=== PATIENT | male | born 1960 | race Caucasian/White ===

== ENCOUNTER 2019-02-03 07:45 | Day surgery (SDC) | payer MEDICARE, MEDICAID ==
[2019-02-03] VITALS (8 sets, daily range): BP systolic 77–159; BP diastolic 47–103
[~2019-02-03] VITALS: Ht 188 cm; Wt 103.7 kg
[2019-02-03] MEDS ORDERED: fentaNYL/PF 50MCG/1 ML 2ML syringe IV PRN (08:25)
[2019-02-03] MEDS ORDERED: normal saline 1000ml 1,000 ML IV PRN (08:25)
[2019-02-03] MEDS ORDERED: LIDOcaine 1%/PF 5ML 10 MG/ML VIAL SQ ONE (08:25)
[2019-02-03] MEDS ORDERED: midazolam 2 mg/2 ml injection IV PRN (08:25)
[2019-02-03] MEDS ORDERED: CLON0.5T23 PO (08:43)
[2019-02-03] MEDS ORDERED: FERR325T28 PO (08:43)
[2019-02-03] MEDS ORDERED: ISOS30TA6 PO (08:43)
[2019-02-03] MEDS ORDERED: GLIP10TA11 PO (08:43)
[2019-02-03] MEDS ORDERED: BUME1TAB8 PO (08:43)
[2019-02-03] MEDS ORDERED: CHOL100046 PO (08:43)
[2019-02-03] MEDS ORDERED: ATOR10TA87 PO (08:43)
[2019-02-03 09:05] LABS: BASOPHILS # (AUTO) 0.1 X10'3 (0-0.2); BASOPHILS % (AUTO) 0.8 % (0-1); EOSINOPHILS # (AUTO) 0.1 X10'3 (0-0.9); EOSINOPHILS % (AUTO) 2.4 % (0-6); HEMATOCRIT 32.7 % (42.0-52.0); HEMOGLOBIN 11.4 g/dl (14.0-17.9); LYMPHOCYTES # (AUTO) 1.3 X10'3 (1.1-4.8); LYMPHOCYTES % (AUTO) 21.9 % (21-51); MEAN CORPUSCULAR HEMOGLOBIN 35.8 PG (27.0-31.0); MEAN CORPUSCULAR HGB CONC 34.8 g/dL (33.0-36.5); MEAN CORPUSCULAR VOLUME 102.7 FL (78-98); MEAN PLATELET VOLUME 8.2 FL (7.4-10.4); MONOCYTES # (AUTO) 0.5 X10'3 (0-0.9); MONOCYTES % (AUTO) 7.6 % (2-12); NEUTROPHILS # (AUTO) 4.1 X10'3 (1.8-7.7); NEUTROPHILS % (AUTO) 67.3 % (42-75); PLATELET COUNT 168 X10'3 (140-440); RED BLOOD COUNT 3.18 X10'6 (4.70-6.10); RED CELL DISTRIBUTION WIDTH 15.9 % (11.5-14.5); WHITE BLOOD COUNT 6.1 X10'3 (4.5-11.0)
[2019-02-03] MEDS ORDERED: tPA-cathflo 2 MG/2 ml IV flush IVF ONE (09:05)
[2019-02-03] MEDS ORDERED: heparin 1,000 UNITS/NS 500ml 500 ML ONE (09:08)
[2019-02-03] MEDS ORDERED: iohexol 300mg/ml 100ml inj. ONE (09:08)
[2019-02-03] MEDS ORDERED: LIDOcaine 1%/PF 5ML 10 MG/ML VIAL ONE ×2 (09:08→10:12)
[2019-02-03 09:12] LABS: PARTIAL THROMBOPLASTIN TIME 29 SECONDS (22-32)
[2019-02-03] MEDS ORDERED: fentaNYL/PF 50MCG/1 ML 2ML syringe ONE ×2 (09:15→10:04)
[2019-02-03] MEDS ORDERED: tPA-cathflo 2 MG/2 ml IV flush ONE (09:15)
[2019-02-03] MEDS ORDERED: diphenhydrAMINE 50 mg/ml inj ONE (09:15)
[2019-02-03] MEDS ORDERED: midazolam 2 mg/2 ml injection ONE (09:40)
[2019-02-03] MEDS ORDERED: heparin 1,000unit/ml 10ml vial 10 ML ONE (10:02)
[2019-02-03 10:04] LABS: ALBUMIN 3.4 G/DL (3.4-5.0); ANION GAP 12 (8-16); BLOOD UREA NITROGEN 53 MG/DL (7-18); BUN/CREATININE RATIO 8.8 (5.4-32.0); CALCIUM 9.2 MG/DL (8.5-10.1); CHLORIDE 105 MMOL/L (99-107); GLUCOSE 173 MG/DL (70-104); POTASSIUM 4.4 MMOL/L (3.5-5.1); SODIUM 141 MMOL/L (135-145); TOTAL CARBON DIOXIDE 24.1 MMOL/L (24-32); eGFR 10 ML/MIN
[2019-02-03] MEDS ORDERED: heparin 1,000 units/ml 10ml inj ICATH ONE (10:15)
--- NOTE | 2019-02-03 11:12 | NUR ---
Pt left arm started to bleed from procedure/fistula site. pressure applied and held for 10min. New dressing applied by Alan Garcia from [facility]. Will continue to monitor. VS charted. Pt denies pain. Pt denies numbness or tingling in left hand and arm.
--- NOTE | 2019-02-03 11:25 | NUR ---
Pt left arm procedure/fistula site started bleeding, pressure applied and held for 15min. Radha Phillips, attended from [facility]. Leeanneg applied, CD&I. Pt sitting up in bed. VS charted. Pt denies pain. Will continue to monitor.
--- NOTE | 2019-02-03 12:20 | NUR ---
Awoke pt who was sleeping comfortably in bed. Pt denies pain. Site on left are is not bleeding, drsg is CD&I. vs charted. pt denies pain. pt reports he is comfortable with discharging at this time. His ride needs advance notice. Will continue to monitor until their arrival.
--- NOTE | 2019-02-03 12:46 | NUR ---
Pt left arm started to bleed. pressure held for 5min. Dressing in place with small amount of drainage. Will reassess in 20 min. Pt vs charted. pt A/O, denies pain.
--- NOTE | 2019-02-03 12:46 | NUR ---
paged Dr. Hu, awaiting call back.
--- NOTE | 2019-02-03 13:05 | NUR ---
Pressure held on left arm due to drainage. 15 min of pressure and then pressure drsg in place. Pt vs stable as charted. will continue to monitor.
== END 2019-02-03 14:20 | disposition home or self-care (01) ==
LOC: SSTAY O 07:45
PROVIDERS: ATTEND Radiology Vascular & Interventional Radiology
DX: T82.868A Thrombosis due to vascular prosthetic devices, implants and grafts, initial encounter (principal); I10 Essential (primary) hypertension; E78.00 Pure hypercholesterolemia, unspecified; E11.9 Type 2 diabetes mellitus without complications; Z89.421 Acquired absence of other right toe(s); Z79.01 Long term (current) use of anticoagulants; Z88.1 Allergy status to other antibiotic agents; Z88.8 Allergy status to other drugs, medicaments and biological substances; Z79.899 Other long term (current) drug therapy; Z79.84 Long term (current) use of oral hypoglycemic drugs; Y83.8 Other surgical procedures as the cause of abnormal reaction of the patient, or of later complication, without mention of misadventure at the time of the procedure; Y92.89 Other specified places as the place of occurrence of the external cause
CPT/HCPCS: 36415; 36558; 36904; 76937; 77001; 80048; 85025; 85610; 85730; 99152; 99153; C1725; C1750; C1769; C1894; J1200; J1644; J2250; J2997; J3010; J7030; Q9967; 36901; A9270

== ENCOUNTER 2020-01-27 08:38 | Day surgery (SDC) | payer MEDICARE, MEDICAID ==
[~2020-01-27] VITALS: Ht 188 cm; Wt 103.7 kg
[~2020-01-27 08:38] MED LIST: ALTEPLASE IV ONE; ANGIO IV ONE; ATOR10TA87 PO; BUME1TAB8 PO; CHOL100046 PO; FERR325T28 PO; GLIP10TA11 PO; ISOS30TA6 PO; METO50TA17 PO; NORMAL SALINE IV ONE; clonazepam PO; tPA-cathflo 2mg/2ml IV flush 2 MG in normal saline 100ml IV soln 100 ML IVF ONE
[2020-01-27] MEDS ORDERED: CLON-527 PO (10:22)
[2020-01-27] MEDS ORDERED: SEVE800T7 PO (10:22)
[2020-01-27] MEDS ORDERED: BUME2TAB7 PO (10:22)
[2020-01-27] MEDS ORDERED: CLON-369 PO (10:22)
[2020-01-27] MEDS ORDERED: METO-384 PO (10:22)
[2020-01-27] MEDS ORDERED: ISOS60TA4 PO (10:22)
[2020-01-27] MEDS ORDERED: ATOR40TA PO (10:22)
[2020-01-27] MEDS ORDERED: OMEP40CA13 PO (10:23)
[2020-01-27] MEDS ORDERED: FOLI1TAB34 PO (10:24)
[2020-01-27 10:26] VITALS: BP 117/69
[2020-01-27] MEDS ORDERED: heparin 1,000unit/ml 10ml vial 10 ML ONE (12:09)
[2020-01-27 12:41] VITALS: BP 145/74
== END 2020-01-27 13:00 | disposition home or self-care (01) ==
LOC: SSTAY O 08:38
PROVIDERS: ATTEND Radiology Vascular & Interventional Radiology
DX: T82.858A Stenosis of other vascular prosthetic devices, implants and grafts, initial encounter (principal); E78.00 Pure hypercholesterolemia, unspecified; E11.22 Type 2 diabetes mellitus with diabetic chronic kidney disease; I12.9 Hypertensive chronic kidney disease with stage 1 through stage 4 chronic kidney disease, or unspecified chronic kidney disease; N18.9 Chronic kidney disease, unspecified; Z98.890 Other specified postprocedural states; Z87.891 Personal history of nicotine dependence; Z88.1 Allergy status to other antibiotic agents; Z79.84 Long term (current) use of oral hypoglycemic drugs; Z79.899 Other long term (current) drug therapy; Z89.421 Acquired absence of other right toe(s); Y83.2 Surgical operation with anastomosis, bypass or graft as the cause of abnormal reaction of the patient, or of later complication, without mention of misadventure at the time of the procedure; Y92.89 Other specified places as the place of occurrence of the external cause
CPT/HCPCS: 36593; 71045; J1644; J2997

== ENCOUNTER 2020-02-02 06:18 | Day surgery (SDC) | payer MEDICARE, MEDICAID ==
[~2020-02-02] VITALS: Ht 193 cm; Wt 108.5 kg
[~2020-02-02 06:18] MED LIST changes: -ALTEPLASE IV ONE; -ANGIO IV ONE; -ATOR10TA87 PO; +ATOR40TA PO; -BUME1TAB8 PO; +BUME2TAB7 PO; -CHOL100046 PO; +CLON-369 PO; +CLON-527 PO; -FERR325T28 PO; +FOLI1TAB34 PO; -ISOS30TA6 PO; +ISOS60TA4 PO; +METO-384 PO; -NORMAL SALINE IV ONE; +OMEP40CA13 PO; +SEVE800T7 PO; -clonazepam PO; -tPA-cathflo 2mg/2ml IV flush 2 MG in normal saline 100ml IV soln 100 ML IVF ONE
[2020-02-02 06:38] VITALS: BP 139/73
[2020-02-02] MEDS ORDERED: ceFAZolin/D5W- 1GM premix 50 ML IV ONE (06:45)
[2020-02-02] MEDS ORDERED: normal saline 1000ml 1,000 ML IV PRN (06:45)
[2020-02-02 07:46] LABS: BASOPHILS % (AUTO) 0.5 % (0-1); EOSINOPHILS # (AUTO) 0.2 X10'3 (0-0.9); EOSINOPHILS % (AUTO) 3.5 % (0-6); HEMATOCRIT 27.4 % (42.0-52.0); HEMOGLOBIN 9.6 g/dl (14.0-17.9); LYMPHOCYTES # (AUTO) 1.2 X10'3 (1.1-4.8); LYMPHOCYTES % (AUTO) 21.3 % (21-51); MEAN CORPUSCULAR HEMOGLOBIN 37.3 PG (27.0-31.0); MEAN CORPUSCULAR HGB CONC 34.8 g/dL (33.0-36.5); MEAN CORPUSCULAR VOLUME 107.1 FL (78-98); MEAN PLATELET VOLUME 8.2 FL (7.4-10.4); MONOCYTES # (AUTO) 0.5 X10'3 (0-0.9); MONOCYTES % (AUTO) 8.8 % (2-12); NEUTROPHILS # (AUTO) 3.7 X10'3 (1.8-7.7); NEUTROPHILS % (AUTO) 65.9 % (42-75); PLATELET COUNT 161 X10'3 (140-440); RED BLOOD COUNT 2.56 X10'6 (4.70-6.10); RED CELL DISTRIBUTION WIDTH 13.7 % (11.5-14.5); WHITE BLOOD COUNT 5.5 X10'3 (4.5-11.0)
[2020-02-02 07:57] LABS: ANION GAP 9 (8-16); BLOOD UREA NITROGEN 50 MG/DL (7-18); BUN/CREATININE RATIO 6.7 (5.4-32.0); CALCIUM 8.4 MG/DL (8.5-10.1); CHLORIDE 108 MMOL/L (99-107); GLUCOSE 184 MG/DL (70-104); POTASSIUM 4.6 MMOL/L (3.5-5.1); SODIUM 142 MMOL/L (135-145); TOTAL CARBON DIOXIDE 24.8 MMOL/L (24-32); eGFR 7 ML/MIN
[2020-02-02] MEDS ORDERED: LIDOcaine 1%/PF 5ML 10 MG/ML VIAL ONE (08:45)
[2020-02-02] MEDS ORDERED: fentaNYL/PF 50MCG/1 ML 2ML syringe ONE ×2 (08:46→09:24)
[2020-02-02] MEDS ORDERED: midazolam 2 mg/2 ml injection ONE ×2 (08:46→09:24)
[2020-02-02] MEDS ORDERED: iohexol 300mg/ml 100ml inj. ONE (08:46)
[2020-02-02] MEDS ORDERED: heparin 1,000 UNITS/NS 500ml 500 ML ONE (08:47)
[2020-02-02] MEDS ORDERED: tPA-cathflo 2 MG/2 ml IV flush ONE (09:27)
[2020-02-02 10:39] VITALS: BP 149/65
[2020-02-02 10:45] VITALS: BP 152/97
[2020-02-02 11:00] VITALS: BP 167/86
[2020-02-02 11:15] VITALS: BP 150/79
[2020-02-02 11:30] VITALS: BP 145/64
== END 2020-02-02 11:45 | disposition home or self-care (01) ==
LOC: SSTAY O 06:18
PROVIDERS: ATTEND Radiology Diagnostic Radiology
DX: T82.868A Thrombosis due to vascular prosthetic devices, implants and grafts, initial encounter (principal); E11.22 Type 2 diabetes mellitus with diabetic chronic kidney disease; I12.9 Hypertensive chronic kidney disease with stage 1 through stage 4 chronic kidney disease, or unspecified chronic kidney disease; N18.9 Chronic kidney disease, unspecified; Z79.84 Long term (current) use of oral hypoglycemic drugs; Z79.899 Other long term (current) drug therapy; Z20.828 Contact with and (suspected) exposure to other viral communicable diseases; Y83.8 Other surgical procedures as the cause of abnormal reaction of the patient, or of later complication, without mention of misadventure at the time of the procedure; Y92.89 Other specified places as the place of occurrence of the external cause
CPT/HCPCS: 36415; 36905; 76937; 80048; 85025; 99152; 99153; C1725; C1769; C1894; J1644; J2250; J2997; J3010; Q9967

== ENCOUNTER 2020-02-22 21:15 | Emergency (ER) | payer MEDICARE, MEDICAID ==
[~2020-02-22] VITALS: Ht 188 cm; Wt 102.0 kg
[~2020-02-22 21:15] MED LIST changes: -METO50TA17 PO
[2020-02-22 22:04] LABS: BASOPHILS # (AUTO) 0.1 X10'3 (0-0.2); BASOPHILS % (AUTO) 0.6 % (0-1); EOSINOPHILS # (AUTO) 0.3 X10'3 (0-0.9); EOSINOPHILS % (AUTO) 3.1 % (0-6); HEMATOCRIT 35.4 % (42.0-52.0); HEMOGLOBIN 12.2 g/dl (14.0-17.9); LYMPHOCYTES # (AUTO) 1.6 X10'3 (1.1-4.8); LYMPHOCYTES % (AUTO) 17.1 % (21-51); MEAN CORPUSCULAR HGB CONC 34.5 g/dL (33.0-36.5); MEAN CORPUSCULAR VOLUME 107.2 FL (78-98); MEAN PLATELET VOLUME 7.9 FL (7.4-10.4); MONOCYTES # (AUTO) 0.7 X10'3 (0-0.9); MONOCYTES % (AUTO) 7.2 % (2-12); NEUTROPHILS # (AUTO) 6.7 X10'3 (1.8-7.7); PLATELET COUNT 218 X10'3 (140-440); RED BLOOD COUNT 3.31 X10'6 (4.70-6.10); RED CELL DISTRIBUTION WIDTH 14.9 % (11.5-14.5); WHITE BLOOD COUNT 9.2 X10'3 (4.5-11.0)
[2020-02-22 22:15] LABS: ALANINE AMINOTRANSFERASE 33 U/L (12-78); ALBUMIN 3.7 G/DL (3.4-5.0); ALBUMIN/GLOBULIN RATIO 0.9 (1.1-1.5); ALKALINE PHOSPHATASE 100 IU/L (46-116); ANION GAP 8 (8-16); ASPARTATE AMINO TRANSFERASE 17 U/L (10-37); BILIRUBIN,TOTAL 0.7 MG/DL (0.1-1.0); BLOOD UREA NITROGEN 22 MG/DL (7-18); BUN/CREATININE RATIO 4.9 (5.4-32.0); CALCIUM 9.2 MG/DL (8.5-10.1); CHLORIDE 100 MMOL/L (99-107); CREATININE 4.46 MG/DL (0.60-1.10); GLUCOSE 117 MG/DL (70-104); POTASSIUM 4.1 MMOL/L (3.5-5.1); SODIUM 141 MMOL/L (135-145); TOTAL CARBON DIOXIDE 33.3 MMOL/L (24-32); TOTAL PROTEIN 7.7 G/DL (6.4-8.2); eGFR 14 ML/MIN
[2020-02-22] MEDS ORDERED: ondansetron/PF 4mg/2ml inj IV ONE (22:25)
[2020-02-22] MEDS ORDERED: ONDA4TAB12 PO (22:26)
[2020-02-22 22:52] VITALS: BP 124/64
== END 2020-02-22 23:23 | disposition home or self-care (01) ==
LOC: ER 21:15
DX: I12.9 Hypertensive chronic kidney disease with stage 1 through stage 4 chronic kidney disease, or unspecified chronic kidney disease (principal); E11.22 Type 2 diabetes mellitus with diabetic chronic kidney disease; N18.9 Chronic kidney disease, unspecified; R07.9 Chest pain, unspecified; R11.0 Nausea; R61 Generalized hyperhidrosis; R53.1 Weakness; Z79.899 Other long term (current) drug therapy
CPT/HCPCS: 36415; 71045; 80053; 83880; 84484; 85025; 93005; 96374; 99285; J2405

== ENCOUNTER 2020-05-16 16:34 | Emergency (ER) | payer MEDICARE, MEDICAID ==
[~2020-05-16] VITALS: Ht 188 cm; Wt 113.3 kg
[~2020-05-16 16:34] MED LIST changes: -ISOS60TA4 PO; +ISOS60TA71 PO; +ONDA4TAB12 PO
[2020-05-16] MEDS ORDERED: piperacillin/tazo 3.375gm/50ml 50 ML IV ONE (16:50)
[2020-05-16] MEDS ORDERED: vancomycin/NS 1 GM ADD-VANTAGE 250 ML IV ONE (16:50)
[2020-05-16 17:32] LABS: BASOPHILS % (AUTO) 0.5 % (0-1); EOSINOPHILS # (AUTO) 0.1 X10'3 (0-0.9); EOSINOPHILS % (AUTO) 1.1 % (0-6); HEMATOCRIT 32.2 % (42.0-52.0); LYMPHOCYTES # (AUTO) 1.7 X10'3 (1.1-4.8); LYMPHOCYTES % (AUTO) 20.7 % (21-51); MEAN CORPUSCULAR HEMOGLOBIN 35.8 PG (27.0-31.0); MEAN CORPUSCULAR HGB CONC 34.2 g/dL (33.0-36.5); MEAN CORPUSCULAR VOLUME 104.7 FL (78-98); MEAN PLATELET VOLUME 7.8 FL (7.4-10.4); MONOCYTES # (AUTO) 0.5 X10'3 (0-0.9); MONOCYTES % (AUTO) 6.5 % (2-12); NEUTROPHILS # (AUTO) 5.9 X10'3 (1.8-7.7); NEUTROPHILS % (AUTO) 71.2 % (42-75); PLATELET COUNT 236 X10'3 (140-440); RED BLOOD COUNT 3.08 X10'6 (4.70-6.10); WHITE BLOOD COUNT 8.2 X10'3 (4.5-11.0)
[2020-05-16 17:48] LABS: ALANINE AMINOTRANSFERASE 18 U/L (12-78); ALBUMIN 3.2 G/DL (3.4-5.0); ALBUMIN/GLOBULIN RATIO 0.7 (1.1-1.5); ALKALINE PHOSPHATASE 81 IU/L (46-116); ANION GAP 10 (8-16); ASPARTATE AMINO TRANSFERASE 16 U/L (10-37); BILIRUBIN,TOTAL 0.4 MG/DL (0.1-1.0); BLOOD UREA NITROGEN 32 MG/DL (7-18); BUN/CREATININE RATIO 6.9 (5.4-32.0); CALCIUM 9.4 MG/DL (8.5-10.1); CHLORIDE 98 MMOL/L (99-107); CREATININE 4.67 MG/DL (0.60-1.10); GLUCOSE 137 MG/DL (70-104); POTASSIUM 4.1 MMOL/L (3.5-5.1); SODIUM 139 MMOL/L (135-145); TOTAL PROTEIN 7.9 G/DL (6.4-8.2); eGFR 13 ML/MIN
[2020-05-16] MEDS ORDERED: LEVO250T58 PO (18:59)
[2020-05-16] MEDS ORDERED: DOXY100C76 PO (19:00)
--- NOTE | 2020-05-16 20:09 | NUR ---
BGL was assessed to be 79. Pt stated that he has not eaten until breakfast at 1045 am. Pt is requesting something to eat. Addendum: 05/16/20 at 2013 by JOSE RAFAEL Pt was given sandwich, cheese, and apple juice.
[2020-05-16 21:54] VITALS: BP 134/64
--- NOTE | 2020-05-16 22:01 | NUR ---
Pt able to independently dress self and is awaiting taxi with a eta in 30 mins. Pt currently resting in bed awaiting transport.
== END 2020-05-16 23:11 | disposition home or self-care (01) ==
LOC: ER 16:35
DX: S91.104A Unspecified open wound of right lesser toe(s) without damage to nail, initial encounter (principal); M86.9 Osteomyelitis, unspecified; N18.6 End stage renal disease; E11.22 Type 2 diabetes mellitus with diabetic chronic kidney disease; I12.0 Hypertensive chronic kidney disease with stage 5 chronic kidney disease or end stage renal disease; Z99.2 Dependence on renal dialysis; Z79.2 Long term (current) use of antibiotics; Z79.899 Other long term (current) drug therapy; X58.XXXA Exposure to other specified factors, initial encounter; Y93.89 Activity, other specified; Y92.89 Other specified places as the place of occurrence of the external cause; Y99.8 Other external cause status
CPT/HCPCS: 36415; 73630; 80053; 82948; 83605; 84145; 85025; 87040; 93926; 96365; 96366; 96367; 99285; J2543; J3370

== ENCOUNTER 2021-03-01 17:34 | Emergency (ER) | payer MEDICARE, MEDICAID ==
[~2021-03-01] VITALS: Ht 188 cm; Wt 121.0 kg
[~2021-03-01 17:34] MED LIST changes: -OMEP40CA13 PO; +OMEP40CA21 PO
[2021-03-01] MEDS ORDERED: ondansetron 4mg rapidly disintigrating tab PO ONE (18:15)
--- NOTE | 2021-03-01 18:34 | NUR ---
ASSUMED CARE OF PT. PT IN CT
--- NOTE | 2021-03-01 19:00 | NUR ---
PT HAS NO COMPLAINTS AFTER MEDICATION.
[2021-03-01 19:16] LABS: BASOPHILS # (AUTO) 0.1 X10'3 (0-0.2); BASOPHILS % (AUTO) 0.6 % (0-1); EOSINOPHILS # (AUTO) 0.1 X10'3 (0-0.9); EOSINOPHILS % (AUTO) 0.8 % (0-6); HEMATOCRIT 39.7 % (42.0-52.0); HEMOGLOBIN 13.6 g/dl (14.0-17.9); LYMPHOCYTES # (AUTO) 0.5 X10'3 (1.1-4.8); LYMPHOCYTES % (AUTO) 4.9 % (21-51); MEAN CORPUSCULAR HEMOGLOBIN 35.5 PG (27.0-31.0); MEAN CORPUSCULAR HGB CONC 34.3 g/dL (33.0-36.5); MEAN CORPUSCULAR VOLUME 103.4 FL (78-98); MEAN PLATELET VOLUME 8.1 FL (7.4-10.4); MONOCYTES # (AUTO) 0.6 X10'3 (0-0.9); NEUTROPHILS # (AUTO) 9.9 X10'3 (1.8-7.7); NEUTROPHILS % (AUTO) 88.7 % (42-75); PLATELET COUNT 190 X10'3 (140-440); RED BLOOD COUNT 3.84 X10'6 (4.70-6.10); RED CELL DISTRIBUTION WIDTH 14.1 % (11.5-14.5); WHITE BLOOD COUNT 11.1 X10'3 (4.5-11.0)
[2021-03-01 19:30] LABS: ALANINE AMINOTRANSFERASE 31 U/L (12-78); ALBUMIN 3.5 G/DL (3.4-5.0); ALBUMIN/GLOBULIN RATIO 0.9 (1.1-1.5); ALKALINE PHOSPHATASE 82 IU/L (46-116); ANION GAP 12 (8-16); ASPARTATE AMINO TRANSFERASE 18 U/L (10-37); BILIRUBIN,TOTAL 0.4 MG/DL (0.1-1.0); BLOOD UREA NITROGEN 24 MG/DL (7-18); BUN/CREATININE RATIO 6.1 (5.4-32.0); CALCIUM 8.8 MG/DL (8.5-10.1); CHLORIDE 101 MMOL/L (99-107); CREATININE 3.96 MG/DL (0.60-1.10); GLUCOSE 253 MG/DL (70-104); LIPASE 235 U/L (73-393); POTASSIUM 4.3 MMOL/L (3.5-5.1); SODIUM 139 MMOL/L (135-145); TOTAL CARBON DIOXIDE 26.5 MMOL/L (24-32); TOTAL PROTEIN 7.5 G/DL (6.4-8.2); eGFR 16 ML/MIN
[2021-03-01 19:54] LABS: PLATELET ESTIMATE NORMAL; TOTAL CELLS COUNTED 100
[2021-03-01 19:55] LABS: ELLIPTOCYTES FEW; LARGE PLATELETS FEW; POIKILOCYTOSIS FEW; TEAR DROP CELLS FEW
[2021-03-01 20:26] VITALS: BP 123/73
== END 2021-03-01 20:27 | disposition home or self-care (01) ==
LOC: ER 17:35
DX: R19.7 Diarrhea, unspecified (principal); R10.31 Right lower quadrant pain; R10.32 Left lower quadrant pain; R11.10 Vomiting, unspecified; I12.0 Hypertensive chronic kidney disease with stage 5 chronic kidney disease or end stage renal disease; E11.22 Type 2 diabetes mellitus with diabetic chronic kidney disease; N18.6 End stage renal disease; F12.90 Cannabis use, unspecified, uncomplicated; Z99.2 Dependence on renal dialysis; Z60.2 Problems related to living alone; Z88.1 Allergy status to other antibiotic agents; Z88.8 Allergy status to other drugs, medicaments and biological substances; Z79.899 Other long term (current) drug therapy
CPT/HCPCS: 36415; 74176; 80053; 83690; 85007; 85025; 99284

== ENCOUNTER 2021-03-03 08:09 | Emergency (ER) | payer MEDICARE, MEDICAID ==
[~2021-03-03] VITALS: Ht 188 cm; Wt 113.6 kg
[2021-03-03 08:41] VITALS: BP 137/58
[2021-03-03 09:45] LABS: BASOPHILS % (AUTO) 0.4 % (0-1); EOSINOPHILS # (AUTO) 0.1 X10'3 (0-0.9); EOSINOPHILS % (AUTO) 1.4 % (0-6); HEMATOCRIT 37.6 % (42.0-52.0); HEMOGLOBIN 12.8 g/dl (14.0-17.9); LYMPHOCYTES # (AUTO) 1.5 X10'3 (1.1-4.8); LYMPHOCYTES % (AUTO) 19.6 % (21-51); MEAN CORPUSCULAR HEMOGLOBIN 35.5 PG (27.0-31.0); MEAN CORPUSCULAR HGB CONC 34.1 g/dL (33.0-36.5); MEAN CORPUSCULAR VOLUME 104.1 FL (78-98); MEAN PLATELET VOLUME 8.3 FL (7.4-10.4); MONOCYTES # (AUTO) 0.6 X10'3 (0-0.9); NEUTROPHILS # (AUTO) 5.3 X10'3 (1.8-7.7); NEUTROPHILS % (AUTO) 70.6 % (42-75); PLATELET COUNT 187 X10'3 (140-440); RED BLOOD COUNT 3.61 X10'6 (4.70-6.10); RED CELL DISTRIBUTION WIDTH 14.2 % (11.5-14.5); WHITE BLOOD COUNT 7.5 X10'3 (4.5-11.0)
[2021-03-03 09:57] LABS: PARTIAL THROMBOPLASTIN TIME 26 SECONDS (22-32)
[2021-03-03 10:02] LABS: ALANINE AMINOTRANSFERASE 26 U/L (12-78); ALBUMIN 3.5 G/DL (3.4-5.0); ALBUMIN/GLOBULIN RATIO 0.9 (1.1-1.5); ALKALINE PHOSPHATASE 76 IU/L (46-116); ANION GAP 14 (8-16); ASPARTATE AMINO TRANSFERASE 12 U/L (10-37); BILIRUBIN,TOTAL 0.4 MG/DL (0.1-1.0); BLOOD UREA NITROGEN 57 MG/DL (7-18); BUN/CREATININE RATIO 8.2 (5.4-32.0); CALCIUM 8.9 MG/DL (8.5-10.1); CHLORIDE 98 MMOL/L (99-107); CREATININE 6.99 MG/DL (0.60-1.10); GLUCOSE 315 MG/DL (70-104); POTASSIUM 5.3 MMOL/L (3.5-5.1); SODIUM 137 MMOL/L (135-145); TOTAL CARBON DIOXIDE 25.1 MMOL/L (24-32); TOTAL PROTEIN 7.4 G/DL (6.4-8.2); eGFR 8 ML/MIN
== END 2021-03-03 13:41 | disposition home or self-care (01) ==
LOC: ER 08:10
DX: T82.590A Other mechanical complication of surgically created arteriovenous fistula, initial encounter (principal); E87.5 Hyperkalemia; I10 Essential (primary) hypertension; E11.9 Type 2 diabetes mellitus without complications; F12.90 Cannabis use, unspecified, uncomplicated; Z60.2 Problems related to living alone; Z88.1 Allergy status to other antibiotic agents; Z88.8 Allergy status to other drugs, medicaments and biological substances; Z79.899 Other long term (current) drug therapy; X58.XXXA Exposure to other specified factors, initial encounter; Y93.89 Activity, other specified; Y92.89 Other specified places as the place of occurrence of the external cause; Y99.8 Other external cause status
CPT/HCPCS: 36415; 80053; 85025; 85610; 85730; 99283

== ENCOUNTER 2021-03-07 06:21 | Day surgery (SDC) | payer MEDICARE, MEDICAID ==
[2021-03-07] VITALS (7 sets, daily range): BP systolic 115–168; BP diastolic 63–76
[2021-03-07] MEDS ORDERED: AMLO5TAB PO (07:14)
[2021-03-07] MEDS ORDERED: [UNRECOGNIZED DRUG - OTHER] PO (07:14)
[2021-03-07] MEDS ORDERED: CALC668T PO (07:14)
[2021-03-07] MEDS ORDERED: ASPI-1265 PO (07:14)
[2021-03-07] MEDS ORDERED: LACT10SO3 PO (07:14)
[2021-03-07] MEDS ORDERED: tPA-cathflo 2 MG/2 ml IV flush ONE ×2 (08:05→12:17)
[2021-03-07 09:04] LABS: ALBUMIN 3.6 G/DL (3.4-5.0); ANION GAP 15 (8-16); BLOOD UREA NITROGEN 78 MG/DL (7-18); BUN/CREATININE RATIO 7.7 (5.4-32.0); CALCIUM 9.1 MG/DL (8.5-10.1); CHLORIDE 102 MMOL/L (99-107); CREATININE 10.15 MG/DL (0.60-1.10); GLUCOSE 188 MG/DL (70-104); SODIUM 139 MMOL/L (135-145); TOTAL CARBON DIOXIDE 21.9 MMOL/L (24-32); eGFR 5 ML/MIN
[2021-03-07 09:06] LABS: POTASSIUM 6.1 MMOL/L (3.5-5.1)
[2021-03-07] MEDS ORDERED: fentaNYL/PF 50MCG/1 ML 2ML syringe ONE ×2 (11:33→12:41)
[2021-03-07] MEDS ORDERED: heparin 1,000 UNITS/NS 500ml 500 ML ONE (11:33)
[2021-03-07] MEDS ORDERED: iohexol 300mg/ml 100ml inj. ONE (11:33)
[2021-03-07] MEDS ORDERED: midazolam 1 mg/ML 2ml injection ONE ×2 (11:33→12:41)
[2021-03-07] MEDS ORDERED: heparin 1,000unit/ml 10ml vial 10 ML ONE (12:37)
--- NOTE | 2021-03-07 14:10 | NUR ---
Pt ambulated to bathroom, voided. Pt ate 100% of lunch tray, 250ml oral fluid intake. Denies nausea, denies sob, denies cp.
--- NOTE | 2021-03-07 14:50 | NUR ---
Removed purse string suture. Pt tolerated this well with minimal bleeding. Site dressed using sterile technique. Will continue to monitor.
[2021-03-08] MEDS ORDERED: ONDA4TAB12 SL (08:18)
[2021-03-08] MEDS ORDERED: ISOS60TA71 PO (08:18)
== END 2021-03-07 15:30 | disposition home or self-care (01) ==
LOC: SSTAY O 06:21
PROVIDERS: ATTEND Radiology Vascular & Interventional Radiology
DX: T82.868A Thrombosis due to vascular prosthetic devices, implants and grafts, initial encounter (principal); N18.6 End stage renal disease; Z79.84 Long term (current) use of oral hypoglycemic drugs; Z79.82 Long term (current) use of aspirin; Z79.899 Other long term (current) drug therapy; Z99.2 Dependence on renal dialysis; Z88.1 Allergy status to other antibiotic agents; F12.90 Cannabis use, unspecified, uncomplicated; Y83.2 Surgical operation with anastomosis, bypass or graft as the cause of abnormal reaction of the patient, or of later complication, without mention of misadventure at the time of the procedure; Y92.89 Other specified places as the place of occurrence of the external cause
CPT/HCPCS: 36415; 36905; 80048; 82948; 99152; 99153; C1725; C1769; C1894; J1644; J2250; J2997; J3010; Q9967; 36569

== ENCOUNTER 2021-03-08 06:29 | Day surgery (SDC) | payer MEDICARE, MEDICAID ==
[~2021-03-08] VITALS: Ht 188 cm; Wt 122.5 kg
[~2021-03-08 06:29] MED LIST changes: +AMLO5TAB PO; +ASPI-1265 PO; +CALC668T PO; -CLON-527 PO; -ISOS60TA71 PO; +LACT10SO3 PO; -SEVE800T7 PO; +[UNRECOGNIZED DRUG - OTHER] PO
[2021-03-08] MEDS ORDERED: normal saline 1000ml 1,000 ML IV SCH (06:50)
[2021-03-08 07:15] VITALS: BP 148/70
[2021-03-08] MEDS ORDERED: fentaNYL/PF 50MCG/1 ML 2ML syringe ONE (08:17)
[2021-03-08] MEDS ORDERED: heparin 1,000unit/ml 10ml vial 10 ML ONE (08:17)
[2021-03-08] MEDS ORDERED: midazolam 1 mg/ML 2ml injection ONE (08:17)
[2021-03-08] MEDS ORDERED: ISOS60TA71 PO (08:18)
[2021-03-08] MEDS ORDERED: ONDA4TAB12 SL (08:18)
[2021-03-08] MEDS ORDERED: LIDOCAINE 1%/EPI 1:100,000 inj. 10 ML multi-dose vial ONE ×2 (08:24→09:24)
[2021-03-08] MEDS ORDERED: iohexol 300 MG/1 ML 50ml polymer ONE (08:50)
[2021-03-08 09:56] VITALS: BP 159/75
[2021-03-08 10:00] VITALS: BP 156/73
[2021-03-08 10:15] VITALS: BP 158/65
[2021-03-08 10:30] VITALS: BP 172/68
[2021-03-08 10:55] VITALS: BP 155/73
== END 2021-03-08 11:40 | disposition home or self-care (01) ==
LOC: SSTAY O 06:29
PROVIDERS: ATTEND Preventive Medicine Aerospace Medicine
DX: E11.22 Type 2 diabetes mellitus with diabetic chronic kidney disease (principal); I12.0 Hypertensive chronic kidney disease with stage 5 chronic kidney disease or end stage renal disease; N18.6 End stage renal disease; Z88.1 Allergy status to other antibiotic agents; Z79.899 Other long term (current) drug therapy; F12.90 Cannabis use, unspecified, uncomplicated; Z79.84 Long term (current) use of oral hypoglycemic drugs; Z79.82 Long term (current) use of aspirin
CPT/HCPCS: 36415; 36558; 76937; 77001; 82948; 84132; 99152; 99153; C1750; C1894; J1644; J2250; J3010; J3490; Q9967

== ENCOUNTER 2023-08-07 21:48 | Emergency (ER) | payer MEDICARE, MEDICAID ==
[~2023-08-07] VITALS: Ht 188 cm; Wt 104.0 kg
[~2023-08-07 21:48] MED LIST changes: +ISOS60TA71 PO; -ONDA4TAB12 PO; +ONDA4TAB12 SL; -[UNRECOGNIZED DRUG - OTHER] PO
[2023-08-07 22:14] LABS: BASOPHILS # (AUTO) 0.1 X10'3 (0-0.2); BASOPHILS % (AUTO) 1.1 % (0-1); EOSINOPHILS # (AUTO) 0.1 X10'3 (0-0.9); EOSINOPHILS % (AUTO) 0.7 % (0-6); HEMATOCRIT 42.4 % (42.0-52.0); HEMOGLOBIN 14.1 g/dl (14.0-17.9); LYMPHOCYTES # (AUTO) 2.7 X10'3 (1.1-4.8); LYMPHOCYTES % (AUTO) 29.5 % (21-51); MEAN CORPUSCULAR HEMOGLOBIN 33.9 PG (27.0-31.0); MEAN CORPUSCULAR HGB CONC 33.4 g/dL (33.0-36.5); MEAN CORPUSCULAR VOLUME 101.7 FL (78-98); MEAN PLATELET VOLUME 7.8 FL (7.4-10.4); MONOCYTES % (AUTO) 11.2 % (2-12); NEUTROPHILS # (AUTO) 5.3 X10'3 (1.8-7.7); NEUTROPHILS % (AUTO) 57.5 % (42-75); PLATELET COUNT 224 X10'3 (140-440); RED BLOOD COUNT 4.17 X10'6 (4.70-6.10); RED CELL DISTRIBUTION WIDTH 14.9 % (11.5-14.5); WHITE BLOOD COUNT 9.2 X10'3 (4.5-11.0)
[2023-08-07 22:35] LABS: ALBUMIN 3.8 G/DL (3.4-5.0); ANION GAP 13 (8-16); BLOOD UREA NITROGEN 40 MG/DL (7-18); BUN/CREATININE RATIO 8.8 (10.0-20.0); CALCIUM 9.6 MG/DL (8.5-10.1); CHLORIDE 97 MMOL/L (99-107); CREATININE 4.52 MG/DL (0.60-1.10); GLUCOSE 125 MG/DL (70-104); POTASSIUM 4.2 MMOL/L (3.5-5.1); PRO BRAIN NATRIURETIC PEPTIDE 7282 PG/ML (0-125); SODIUM 141 MMOL/L (135-145); TOTAL CARBON DIOXIDE 31.4 MMOL/L (24-32); eCRCL 19 ML/MIN; eGFR 13 ML/MIN
[2023-08-08 02:05] VITALS: BP 141/67; PULSE 58; RESP 18; TEMP 98.2; O2SAT 94
== END 2023-08-08 02:11 | disposition home or self-care (01) ==
LOC: ER 21:48
DX: R10.817 Generalized abdominal tenderness (principal); Z88.1 Allergy status to other antibiotic agents; Z79.84 Long term (current) use of oral hypoglycemic drugs; N18.9 Chronic kidney disease, unspecified; F12.90 Cannabis use, unspecified, uncomplicated; Z60.2 Problems related to living alone
CPT/HCPCS: 36415; 71045; 74176; 80048; 83880; 84484; 85025; 93005; 99285